=== PATIENT | male | born 1965 | race Two or more races ===

== ENCOUNTER 2018-09-15 14:47 | Emergency (ER) | payer SELFPAY ==
[~2018-09-15] VITALS: Ht 170.2 cm; Wt 83.9 kg
[2018-09-15] MEDS ORDERED: NKM (15:20)
[2018-09-15 15:28] VITALS: BP 130/78
--- NOTE | 2018-09-15 15:28 | NUR ---
ED Nurse Note: pt walked into ER c/o Rt eye rednes and pain 03/01. pt Romanian speaker, dayanarao x4. skin clean and intact. pt reported that he had injury on Rt eye 3 months ago and it was okay until today and it got red today and decided to come in. pt was seen by his pcp already regarding this and received eye drop Maxitrol but has not used it because he felt fine.
--- NOTE | 2018-09-15 15:35 | Emergency Room Report ---
History of Present Illness General Chief Complaint: Eye Problems Source: Patient Present Illness HPI 53-year-old male with no significant past medical history ear complaining of redness in the right eye times one day. Patient reports that 3 months ago that was an accident at work and he was struck by metal at the corner of his eye. 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 Patient however did not use a drop as he was feeling better comes in today saying that his redness in that eye due to the injury up in 3 months ago and once Worker's Comp. paperwork to refills. Revision, eye discharge, eye pain, pruritus, headache, dizziness, nausea vomiting. Denies any other injury Allergies: Coded Allergies: No Known Allergies (Unverified , 09/15/18) Patient History Past Medical History: see triage record Past Surgical History: unable to obtain Pertinent Family History: none Immunizations: UTD Reviewed Nursing Documentation: PMH: Agreed; PSxH: Agreed Nursing Documentation-PMH Past Medical History: No Stated History Review of Systems All Other Systems: negative except mentioned in HPI Physical Exam Vital Signs Date Time Temp Pulse Resp B/P (MAP) Pulse Ox O2 Delivery O2 Flow Rate FiO2 09/15/18 15:17 98.1 98 19 130/78 96 Room Air Sp02 EP Interpretation: reviewed, normal General Appearance: normal inspection, well appearing, no apparent distress, alert Head: normocephalic, atraumatic Eyes: right eye other - red conjunctiva, no discharge noted, no foreign body visible; bilateral eye normal inspection, bilateral eye PERRL ENT: normal ENT inspection, hearing grossly normal, normal pharynx Neck: normal inspection, full range of motion, supple Respiratory: normal inspection, chest non-tender, lungs clear, normal breath sounds, no rhonchi Cardiovascular #1: normal inspection, normal peripheral pulses, regular rate, rhythm, no gallop, no murmur Gastrointestinal: normal inspection, normal bowel sounds, non tender, soft Rectal: deferred Genitourinary: no CVA tenderness Musculoskeletal: normal inspection, back normal Neurologic: normal inspection, alert, oriented x3, responsive Psychiatric: normal inspection, judgement/insight normal Skin: normal inspection, normal color, no rash, warm/dry Lymphatic: normal inspection, no adenopathy Medical Decision Making PA Attestation All diagnosis and treatment fracture reviewed and discussed my supervising physician Dr. Moon Diagnostic Impression: Primary Impression: Acute bacterial conjunctivitis ER Course 53-year-old male with no significant past medical history ear complaining of redness in the right eye times one day. Patient reports that 3 months ago that was an accident at work and he was struck by metal at the corner of his eye. 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 Patient however did not use a drop as he was feeling better comes in today saying that his redness in that eye due to the injury up in 3 months ago and once Worker's Comp. paperwork to refills. Revision, eye discharge, eye pain, pruritus, headache, dizziness, nausea vomiting. Denies any other injury Ddx considered but are not limited to bacterial conjunctivitis, foreign body in the eye, Vital signs: are WNL, pt. is afebrile H&PE are most consistent with. bacterial conjunctivitis ORDERS: none required at this time, the diagnosis is clinical ED INTERVENTIONS: None required at this time. DISCHARGE: At this time pt. is stable for d/c to home. Will provide printed patient care instructions, and any necessary prescriptions. Care plan and follow up instructions have been discussed with the patient prior to discharge. start using eyedrop that was given to by her catalyst operator chief, cannot do O Worker 's Comp. paperwork as the cyst 3 months past the injury and yet R didn't enough initial encounter for your injury by an catalyst operator chief, if any new symptoms's ER catalyst operator chief Last Vital Signs Date Time Temp Pulse Resp B/P (MAP) Pulse Ox O2 Delivery O2 Flow Rate FiO2 09/15/18 15:17 98.1 98 19 130/78 96 Room Air Disposition: HOME, SELF-CARE Condition: Stable Patient Instructions: Bacterial Conjunctivitis, [id number] Additional Instructions: use the eyedrops that was given to you by URI doctor, avoid straining your eyes and focusing on light, very protective sunglasses follow-up with the primary care provider or catalyst operator chief for further assessment, since the injury happened 3 months ago and he did not complain of any symptoms and just started with the right eye redness today it is not related to urinary injury and can this is not the first initial encounter for Worker's Comp. you need to go back to your primary care provider or her experience specialist for Jose Cruz Mendoza Sep 15, 2018 15:35
[2018-09-15 15:42] VITALS: BP 117/82
--- NOTE | 2018-09-15 15:43 | NUR ---
ER DISCHARGE NOTE: Patient is cleared to be discharged per ERPA, pt is aox4, Bengali speaker, accompanied by family, on room air, with stable vital signs. pt was given dc instructions, and was told to administrate eye drop that he got from his PCP on 09/05/2018. pt was able to verbalize understanding, pt id band removed. pt is able to ambulate with steady gait. pt took all belongings.
== END 2018-09-15 15:45 | disposition home or self-care (01) ==
LOC: EMR 15:40
DX: H10.31 Unspecified acute conjunctivitis, right eye (principal); A49.9 Bacterial infection, unspecified
CPT/HCPCS: 99281